=== PATIENT | female | born 1960 | race Caucasian/White ===

== ENCOUNTER 2022-03-28 14:09 | Emergency (ER) | payer OTHER ==
[2022-03-28 14:34] LABS: HEMOGLOBIN 13.1 gm/dl (12.3-15.3); RED BLOOD COUNT 4.9 M/UL (4.00-5.10); WHITE BLOOD COUNT 9.6 K/UL (4.5-11.0)
[2022-03-28 14:54] LABS: BUN/CREATININE RATIO 15 (0-10)
== END 2022-03-28 23:29 | disposition home or self-care (01) ==
LOC: ER1 14:09
DX: R55 Syncope and collapse (principal); R59.0 Localized enlarged lymph nodes; I11.9 Hypertensive heart disease without heart failure; F17.210 Nicotine dependence, cigarettes, uncomplicated; Z88.0 Allergy status to penicillin; Z88.8 Allergy status to other drugs, medicaments and biological substances
CPT/HCPCS: 70496; 70498; 71045; 71046; 80053; 81001; 82550; 82553; 84484; 85025; 87086; 93005; 99284; Q9967